=== PATIENT | female | born 1940 | race Caucasian/White ===

== ENCOUNTER 2016-06-15 13:21 | Emergency (ER) | payer OTHER ==
[~2016-06-15] VITALS: Ht 167.6 cm; Wt 70.7 kg
[~2016-06-15 13:21] MED LIST: ADULT LOW DOSE81 M1 PO; ARICEPT5 MG PO; BUSPIRONE HCL15 MG PO; CEBRIA PO; COMBIGAN O20 DROP/5 BOTH EYES; CYANOCOBAL1000 MCG/2 IM; LEXAPRO20 MG PO; MACROBID100 MG PO; ONDANSETRON HCL4 MG PO; PRAVASTATIN SOD20 MG PO; VITAMIN C1000 MG PO; VITAMIN D32000 UNIT PO; VITAMIN D34000 UNIT PO
[2016-06-15 15:27] LABS: HEMATOCRIT 40.4 % (36.0-46.0); MCH 28.2 PG (29.0-34.0); MCHC 31.7 G/DL (30.0-36.0); MEAN PLAT.VOLUME 10.5 uM^3 (9.5-12.4); PLATELET COUNT 212 K/uL (156-360); RBC DIS.WIDTH-CV 15.8 % (11.8-14.6); RBC DIS.WIDTH-SD 50.9 % (39-53); RED BLOOD COUNT 4.54 M/uL (3.80-5.20); WHITE BLOOD COUNT 13.4 K/uL (4.1-10.2)
[2016-06-15] MEDS ORDERED: LOMOTIL TABLET1 EACH PO (15:36)
[2016-06-15] MEDS ORDERED: MIDODRINE HCL5 MG PO (15:37)
[2016-06-15] MEDS ORDERED: PANTOPRAZOLE SO40 MG PO (15:37)
[2016-06-15 15:44] LABS: CHLORIDE 108 mEq/L (99-109); POTASSIUM 3.8 mEq/L (3.7-5.4); SODIUM 141 mEq/L (136-147)
[2016-06-15 15:46] LABS: GLUCOSE 112 mg/dL (70-99)
[2016-06-15 15:47] LABS: ANION GAP 11 MEQ/L (2-14)
[2016-06-15 15:48] LABS: TOTAL BILIRUBIN 0.9 mg/dL (0.0-1.0)
[2016-06-15 15:49] LABS: ALKALINE PHOSPHATASE 58 IU/L (3-129)
[2016-06-15 15:50] LABS: GFR ESTIMATE (CALCULATED) > 59 mL/min/
[2016-06-15 15:51] LABS: UREA NITROGEN (BUN) 8 mg/dL (9-23)
[2016-06-15 15:53] LABS: LIPASE 20 U/L (1.0-51.0)
[2016-06-15 17:53] LABS: C DIFF TOXIN NEGATIVE (NEGATIVE); PROBE CHECK PASS; SPECIMEN PROCESSING CONTROL PASS
[2016-06-15] MEDS ORDERED: ZOFRAN ODT4 MG PO (17:58)
[2016-06-15 18:43] VITALS: BP 120/65
== END 2016-06-15 18:44 | disposition home or self-care (01) ==
LOC: EME 13:21
PROVIDERS: Emergency Medicine
DX: K52.9 Noninfective gastroenteritis and colitis, unspecified (principal); L02.211 Cutaneous abscess of abdominal wall; E78.5 Hyperlipidemia, unspecified; Z93.3 Colostomy status
CPT/HCPCS: 74177; 80053; 83690; 85027; 87493; 99281; 99284; J2405

== ENCOUNTER 2016-12-22 11:30 | Emergency (ER) | payer OTHER ==
[~2016-12-22] VITALS: Ht 168.9 cm; Wt 81.7 kg
[~2016-12-22 11:30] MED LIST changes: +LOMOTIL TABLET1 EACH PO; +MIDODRINE HCL5 MG PO; +PANTOPRAZOLE SO40 MG PO; +ZOFRAN ODT4 MG PO
[2016-12-22 12:46] LABS: HEMATOCRIT 32.3 % (36.0-46.0); MCH 23.6 PG (29.0-34.0); MCHC 29.4 G/DL (30.0-36.0); MCV 80.1 FL (83-99); MEAN PLAT.VOLUME 10.6 uM^3 (9.5-12.4); PLATELET COUNT 144 K/uL (156-360); RBC DIS.WIDTH-CV 15.6 % (11.8-14.6); RBC DIS.WIDTH-SD 44.9 % (39-53); RED BLOOD COUNT 4.03 M/uL (3.80-5.20); WHITE BLOOD COUNT 7.8 K/uL (4.1-10.2)
[2016-12-22 12:56] LABS: CHLORIDE 107 mEq/L (99-109); POTASSIUM 3.4 mEq/L (3.7-5.4); SODIUM 140 mEq/L (136-147)
[2016-12-22 12:58] LABS: GLUCOSE 75 mg/dL (70-99)
[2016-12-22 12:59] LABS: ANION GAP 11 MEQ/L (2-14)
[2016-12-22 13:02] LABS: GFR ESTIMATE (CALCULATED) > 59 mL/min/
[2016-12-22 13:03] LABS: UREA NITROGEN (BUN) 10 mg/dL (9-23)
[2016-12-22 13:27] LABS: TROP-I INTERPRETATION NEGATIVE; TROPONIN-I 0.01 ng/mL (0.0-0.30)
[2016-12-22 13:30] LABS: EOSINOPHIL (%) 2.5 % (0-5); EOSINOPHIL COUNT 0.2 K/uL (0-0.3); IMMATURE GRANULOCYTE (%) 0.5 % (0.0-0.7); INSTRUMENT ABS NEUTROPHIL CT 5.9 K/uL; LYMPHOCYTE COUNT 1.2 K/uL (1.0-2.8); MONOCYTE (%) 5.2 % (3-12); MONOCYTE COUNT 0.4 K/uL (0-0.8); NEUTROPHIL (%) 75.6 % (45-76); NEUTROPHIL COUNT 5.9 K/uL (1.8-6.4)
[2016-12-22 13:35] LABS: TOTAL BILIRUBIN 0.8 mg/dL (0.0-1.0)
[2016-12-22 13:36] LABS: ALKALINE PHOSPHATASE 59 IU/L (3-129)
[2016-12-22 14:20] LABS: ADD MIUA? NO; BILIRUBIN NEGATIVE; BLOOD NEGATIVE; COLOR STRAW ((YELLOW)); GLUCOSE (STRIP) NEGATIVE; KETONES NEGATIVE; LEUKOCYTES NEGATIVE; NITRITE NEGATIVE; PROTEIN (STRIP) NEGATIVE; SPECIFIC GRAVITY 1.017 (1.000-1.030); UCUL ADDED? NO; UROBILINOGEN 0.2 MG/DL (0.2-1.0)
[2016-12-22] MEDS ORDERED: PROMETHAZINE12.5 M1 PO (16:48)
[2016-12-22 16:57] VITALS: BP 147/79
== END 2016-12-22 16:57 | disposition home or self-care (01) ==
LOC: EME 11:30
PROVIDERS: Physician Assistant
DX: E86.0 Dehydration (principal); R10.84 Generalized abdominal pain; R11.2 Nausea with vomiting, unspecified; R05 Cough; Z93.3 Colostomy status; Z90.49 Acquired absence of other specified parts of digestive tract; K74.60 Unspecified cirrhosis of liver; R16.1 Splenomegaly, not elsewhere classified; K57.30 Diverticulosis of large intestine without perforation or abscess without bleeding; Z87.891 Personal history of nicotine dependence
CPT/HCPCS: 74177; 80048; 80053; 81003; 84484; 85025; 85027; 93005; 99281; 99285; J7030

== ENCOUNTER 2017-02-23 12:10 | Emergency (ER) | payer OTHER ==
[~2017-02-23] VITALS: Ht 165.1 cm; Wt 80.9 kg
[~2017-02-23 12:10] MED LIST changes: +PROMETHAZINE12.5 M1 PO
[2017-02-23 13:25] LABS: HEMATOCRIT 34.6 % (36.0-46.0); MCH 23.1 PG (29.0-34.0); MCHC 29.2 G/DL (30.0-36.0); MCV 79.2 FL (83-99); MEAN PLAT.VOLUME 9.6 uM^3 (9.5-12.4); PLATELET COUNT 165 K/uL (156-360); RBC DIS.WIDTH-SD 48.2 % (39-53); RED BLOOD COUNT 4.37 M/uL (3.80-5.20); WHITE BLOOD COUNT 9.1 K/uL (4.1-10.2)
[2017-02-23 13:36] LABS: CHLORIDE 107 mEq/L (99-109); POTASSIUM 3.6 mEq/L (3.7-5.4); SODIUM 143 mEq/L (136-147)
[2017-02-23 13:38] LABS: GLUCOSE 86 mg/dL (70-99)
[2017-02-23 13:39] LABS: ANION GAP 10 MEQ/L (2-14)
[2017-02-23 13:42] LABS: GFR ESTIMATE (CALCULATED) 57 mL/min/
[2017-02-23 13:43] LABS: UREA NITROGEN (BUN) 20 mg/dL (9-23)
[2017-02-23 13:53] LABS: TROP-I INTERPRETATION NEGATIVE; TROPONIN-I 0.01 ng/mL (0.0-0.30)
[2017-02-23 16:27] LABS: ADD MIUA? YES; BILIRUBIN NEGATIVE; BLOOD NEGATIVE; COLOR YELLOW ((YELLOW)); GLUCOSE (STRIP) NEGATIVE; KETONES NEGATIVE; LEUKOCYTES NEGATIVE; NITRITE NEGATIVE; PROTEIN (STRIP) NEGATIVE; SPECIFIC GRAVITY 1.026 (1.000-1.030); UROBILINOGEN 0.2 MG/DL (0.2-1.0)
[2017-02-23 16:58] LABS: BACTERIA RARE /HPF; EPITHELIAL CELLS 1+ /HPF; MUCUS TRACE /LPF; RED BLOOD CELLS 0-5 /HPF (0-5); UNCLASSIFIED CRYSTALS 1+ /HPF; WHITE BLOOD CELLS 0-5 /HPF (0-5)
[2017-02-23] MEDS ORDERED: ANTIVERT25 MG PO (17:37)
[2017-02-23 18:45] VITALS: BP 131/80
== END 2017-02-23 18:30 | disposition home or self-care (01) ==
LOC: EME 12:10
PROVIDERS: Physician Assistant
DX: R42 Dizziness and giddiness (principal); R51 Headache; R11.0 Nausea; H53.8 Other visual disturbances; H65.92 Unspecified nonsuppurative otitis media, left ear; Z90.49 Acquired absence of other specified parts of digestive tract; Z90.710 Acquired absence of both cervix and uterus; Z87.891 Personal history of nicotine dependence
CPT/HCPCS: 70450; 71020; 80048; 81003; 84484; 85027; 93005; 99281; 99284; J7030

== ENCOUNTER → 2017-09-21 | Outpatient (CLI) | payer OTHER ==
[~2017-09-21] MED LIST changes: +ADULT ASPIRIN81 MG PO; +ANTIVERT25 MG PO; +ARICEPT10 MG PO; -ARICEPT5 MG PO; +BREO ELLIPTA 21 EACH IH; +MEMANTINE HCL E28 MG PO; +PRAVACHOL40 MG PO; +QUESTRAN PACKET4 GM PO; +VENTOLIN HFA18 GM IH; +VITAMIN D32000 UNI1 PO; -VITAMIN D34000 UNIT PO
== END | disposition home or self-care (01) ==
LOC: CDC 14:27
DX: Z01.810 Encounter for preprocedural cardiovascular examination (principal); K57.20 Diverticulitis of large intestine with perforation and abscess without bleeding; Z93.3 Colostomy status; I49.1 Atrial premature depolarization; R94.31 Abnormal electrocardiogram [ECG] [EKG]
CPT/HCPCS: 93000

== ENCOUNTER 2017-09-27 22:39 | Inpatient (IN) | payer OTHER ==
[~2017-09-27] VITALS: Ht 167.6 cm; Wt 89.0 kg
[2017-10-05 06:06] VITALS: BP 129/60
[2017-10-05 13:35] VITALS: BP 129/60
[2017-10-05 15:43] VITALS: BP 126/60
[2017-10-05 19:18] VITALS: BP 130/61
[2017-10-05 23:05] VITALS: BP 113/53
[2017-10-06 04:58] VITALS: BP 124/60
[2017-10-06 07:23] VITALS: BP 113/61
[2017-10-06 09:59] LABS: HEMATOCRIT 32.1 % (36.0-46.0); HEMOGLOBIN 9.9 G/DL (11.9-15.5); MCH 25.4 PG (29.0-34.0); MCHC 30.8 G/DL (30.0-36.0); MCV 82.3 FL (83-99); PLATELET COUNT 149 K/uL (156-360); RBC DIS.WIDTH-CV 17.2 % (11.8-14.6); RBC DIS.WIDTH-SD 51.3 % (39-53); WHITE BLOOD COUNT 9.6 K/uL (4.1-10.2)
[2017-10-06 10:27] LABS: CHLORIDE 107 MEQ/L (99-109); CREATININE 1.1 MG/DL (0.6-1.3); GFR ESTIMATE (CALCULATED) 51 mL/min/; GLUCOSE 84 mg/dL (70-99); POTASSIUM 3.9 MEQ/L (3.7-5.4); SODIUM 141 MEQ/L (136-147); UREA NITROGEN (BUN) 9 mg/dL (9-23)
[2017-10-06 11:20] VITALS: BP 110/58
[2017-10-06 15:22] VITALS: BP 111/56
[2017-10-06 20:30] VITALS: BP 107/51
[2017-10-06 23:58] VITALS: BP 110/50
[2017-10-07 03:45] VITALS: BP 112/51
[2017-10-07 05:55] LABS: HEMATOCRIT 32.8 % (36.0-46.0); MCH 25.4 PG (29.0-34.0); MCHC 30.5 G/DL (30.0-36.0); MCV 83.5 FL (83-99); PLATELET COUNT 130 K/uL (156-360); RBC DIS.WIDTH-CV 17.2 % (11.8-14.6); RBC DIS.WIDTH-SD 52.8 % (39-53); RED BLOOD COUNT 3.93 M/uL (3.80-5.20); WHITE BLOOD COUNT 7.6 K/uL (4.1-10.2)
[2017-10-07 06:25] LABS: ALBUMIN 3.2 G/DL (3.2-4.8); ALKALINE PHOSPHATASE 47 IU/L (3-129); ALT (GPT) 9 IU/L (3-49); AST (GOT) 17 IU/L (2-34); CHLORIDE 105 MEQ/L (99-109); CREATININE 0.9 MG/DL (0.6-1.3); GFR ESTIMATE (CALCULATED) > 59 mL/min/; GLUCOSE 83 mg/dL (70-99); POTASSIUM 3.8 MEQ/L (3.7-5.4); SODIUM 142 MEQ/L (136-147); TOTAL BILIRUBIN 0.4 MG/DL (0.0-1.0); TOTAL PROTEIN 5.5 G/DL (6.4-8.3); UREA NITROGEN (BUN) 10 mg/dL (9-23)
[2017-10-07 08:18] VITALS: BP 119/77
[2017-10-07 12:12] VITALS: BP 100/49
[2017-10-07 16:53] VITALS: BP 107/70
[2017-10-07 19:37] VITALS: BP 124/58
[2017-10-07 23:14] VITALS: BP 126/67
[2017-10-08 06:22] LABS: HEMATOCRIT 33.7 % (36.0-46.0); HEMOGLOBIN 10.2 G/DL (11.9-15.5); MCH 25.1 PG (29.0-34.0); MCHC 30.3 G/DL (30.0-36.0); MCV 82.8 FL (83-99); PLATELET COUNT 132 K/uL (156-360); RBC DIS.WIDTH-SD 51.3 % (39-53); RED BLOOD COUNT 4.07 M/uL (3.80-5.20); WHITE BLOOD COUNT 6.1 K/uL (4.1-10.2)
[2017-10-08 06:40] LABS: CHLORIDE 102 MEQ/L (99-109); CREATININE 0.8 MG/DL (0.6-1.3); GFR ESTIMATE (CALCULATED) > 59 mL/min/; GLUCOSE 86 mg/dL (70-99); POTASSIUM 3.6 MEQ/L (3.7-5.4); SODIUM 141 MEQ/L (136-147); UREA NITROGEN (BUN) 8 mg/dL (9-23)
[2017-10-08 08:06] VITALS: BP 129/59
[2017-10-08] MEDS ORDERED: HYDROCODON-ACE1 EAC7 PO (10:55)
[2017-10-08 12:21] VITALS: BP 134/63
[2017-10-08 16:03] VITALS: BP 128/76
[2017-10-08 20:00] VITALS: BP 118/72
[2017-10-08 23:57] VITALS: BP 115/53
[2017-10-09 04:33] VITALS: BP 115/56
[2017-10-09 09:23] VITALS: BP 110/53
[2017-10-09 11:14] VITALS: BP 103/59
== END 2017-10-09 13:35 | disposition home health service (06) | DRG 337 ==
LOC: 2SOUTH → ENRESERV 22:39 → CANRESERV 09-28 08:57 → 2SOUTH 09-28 10:45 → ENRESERV 10-04 22:09 → 2SOUTH 10-05 05:30 → ENRESERV 10-05 11:40 → 3EAST 10-05 13:19
PROVIDERS: Physician Assistant Surgical; Surgery
PROC: 0DN80ZZ Release Small Intestine, Open Approach (ICD-10-PCS; principal; 2017-10-05)
DX: Z43.3 Encounter for attention to colostomy (principal); Z53.8 Procedure and treatment not carried out for other reasons; K66.0 Peritoneal adhesions (postprocedural) (postinfection); K74.60 Unspecified cirrhosis of liver; N94.89 Other specified conditions associated with female genital organs and menstrual cycle; L90.5 Scar conditions and fibrosis of skin; E66.9 Obesity, unspecified; Z68.31 Body mass index [BMI] 31.0-31.9, adult; M19.90 Unspecified osteoarthritis, unspecified site; J43.9 Emphysema, unspecified
CPT/HCPCS: 80048; 80053; 85027; 94799; J0131; J0330; J1100; J1644; J1885; J2710; J3010; J3475; J7120; J7643; S0074

== ENCOUNTER 2018-01-03 13:29 | Emergency (ER) | payer OTHER ==
[~2018-01-03] VITALS: Ht 167.6 cm; Wt 78.6 kg
[~2018-01-03 13:29] MED LIST changes: +HYDROCODON-ACE1 EAC7 PO
[2018-01-03 15:22] LABS: BASOPHIL (%) 0.4 % (0-1); EOSINOPHIL (%) 1.8 % (0-5); EOSINOPHIL COUNT 0.2 K/uL (0-0.3); HEMATOCRIT 37.8 % (36.0-46.0); HEMOGLOBIN 11.8 G/DL (11.9-15.5); IMMATURE GRANULOCYTE (%) 0.2 % (0.0-0.7); LYMPHOCYTE (%) 25.3 % (15-42); LYMPHOCYTE COUNT 2.4 K/uL (1.0-2.8); MCH 26.6 PG (29.0-34.0); MCHC 31.2 G/DL (30.0-36.0); MCV 85.1 FL (83-99); MONOCYTE (%) 6.4 % (3-12); MONOCYTE COUNT 0.6 K/uL (0-0.8); NEUTROPHIL (%) 65.9 % (45-76); NEUTROPHIL COUNT 6.3 K/uL (1.8-6.4); PLATELET COUNT 159 K/uL (156-360); RBC DIS.WIDTH-CV 17.4 % (11.8-14.6); RBC DIS.WIDTH-SD 53.8 % (39-53); RED BLOOD COUNT 4.44 M/uL (3.80-5.20); WHITE BLOOD COUNT 9.5 K/uL (4.1-10.2)
[2018-01-03 15:35] LABS: GLUCOSE 98 mg/dL (70-99); INTER. NORMALIZED RATIO 1.2; TOTAL PROTEIN 7.6 g/dL (6.4-8.3)
[2018-01-03 15:37] LABS: TOTAL BILIRUBIN 0.6 mg/dL (0.0-1.0)
[2018-01-03 15:38] LABS: APPEARANCE SL.HAZY ((CLEAR)); BILIRUBIN NEGATIVE; BLOOD NEGATIVE; COLOR YELLOW ((YELLOW)); GLUCOSE (STRIP) NEGATIVE; KETONES NEGATIVE; LEUKOCYTES NEGATIVE; NITRITE NEGATIVE; PROTEIN (STRIP) NEGATIVE; SPECIFIC GRAVITY 1.017 (1.000-1.030); UROBILINOGEN 0.2 MG/DL (0.2-1.0)
[2018-01-03 15:38] LABS: ALKALINE PHOSPHATASE 63 IU/L (3-129); GFR ESTIMATE (CALCULATED) 57 mL/min/; PTT 28.3 SEC (25-37)
[2018-01-03 15:39] LABS: UREA NITROGEN (BUN) 14 mg/dL (9-23)
[2018-01-03 15:40] LABS: AST (GOT) 25 IU/L (2-34)
[2018-01-03 15:41] LABS: ALT (GPT) 19 IU/L (3-49)
[2018-01-03 15:42] LABS: BACTERIA RARE /HPF; CALCIUM OXALATE CRYSTALS 1+ /HPF; EPITHELIAL CELLS 2+ /HPF; MUCUS 1+ /LPF; RED BLOOD CELLS 0-5 /HPF (0-5); WHITE BLOOD CELLS 0-5 /HPF (0-5)
[2018-01-03 15:42] LABS: LIPASE 35 U/L (1.0-51.0)
[2018-01-03 15:55] LABS: ALBUMIN 4.2 g/dL (3.2-4.8); CHLORIDE 109 mEq/L (99-109); POTASSIUM 4.6 mEq/L (3.7-5.4); SODIUM 143 mEq/L (136-147)
[2018-01-03 16:14] VITALS: BP 106/61
== END 2018-01-03 16:17 | disposition home or self-care (01) ==
LOC: EME 13:29
PROVIDERS: Physician Assistant
DX: K92.2 Gastrointestinal hemorrhage, unspecified (principal); I70.0 Atherosclerosis of aorta; M47.9 Spondylosis, unspecified; M16.0 Bilateral primary osteoarthritis of hip; E78.5 Hyperlipidemia, unspecified; M19.90 Unspecified osteoarthritis, unspecified site; H40.9 Unspecified glaucoma; F03.90 Unspecified dementia, unspecified severity, without behavioral disturbance, psychotic disturbance, mood disturbance, and anxiety; F41.9 Anxiety disorder, unspecified; F32.9 Major depressive disorder, single episode, unspecified; Z79.82 Long term (current) use of aspirin; Z87.891 Personal history of nicotine dependence; Z93.3 Colostomy status; Z87.19 Personal history of other diseases of the digestive system; Z90.49 Acquired absence of other specified parts of digestive tract; Z88.5 Allergy status to narcotic agent
CPT/HCPCS: 74018; 80053; 81003; 83690; 85025; 85610; 85730; 99281; 99283